=== PATIENT | female | born 1980 | race Two or more races ===

== ENCOUNTER 2022-07-28 22:53 | Inpatient (IN) | payer MEDICAID ==
[~2022-07-28] VITALS: Ht 157.5 cm; Wt 83.4 kg
[2022-07-29 00:39] LABS: Urine Bacteria MANY /hpf (None Seen); Urine Blood 3+ /uL (Negative); Urine Mucus FEW (None Seen); Urine Specific Gravity 1.032 (1.001-1.035); Urine WBC 27 /hpf (0 - 5)
[2022-07-29 00:47] LABS: Basophils # (auto) 0.1 10 ^3/uL (0-0.2); Basophils % (auto) 0.4 % (0.0-2.0); Eosinophils # (auto) 0.3 10 ^3/uL (0-0.8); Eosinophils % (auto) 2.8 % (0.0-7.0); Hematocrit 42.3 % (36.0-46.0); Hemoglobin 14.4 g/dL (12.2-16.2); Lymphocytes # (auto) 2.5 10 ^3/uL (0.4-5.4); Lymphocytes % (auto) 20.6 % (10.0-50.0); Mean Corpuscular Hemoglobin 29.1 pg (28.0-32.0); Mean Corpuscular Volume 85.8 fL (80.0-100.0); Monocytes # (auto) 0.7 10 ^3/uL (0-1.3); Monocytes % (auto) 6.1 % (0.0-12.0); Neutrophils # (auto) 8.5 10 ^3/uL (1.6-8.6); Neutrophils % (auto) 70.1 % (37.0-80.0); Red Blood Cells 4.93 10^6/uL (4.0-5.20); Red Cell Distribution Width 13.2 % (11.8-14.3); White Blood Cell 12.2 10^3/uL (4.4-10.8)
[2022-07-29 01:08] LABS: Albumin 3.6 g/dL (3.4-5.0); BUN/Creatinine Ratio 10.8; Calcium 8.7 mg/dL (8.5-10.1); Potassium 3.5 mmol/L (3.5-5.1)
[2022-07-29 01:10] LABS: Bilirubin, Total 0.5 mg/dL (0.2-1.0); Total Protein 7.4 g/dL (6.4-8.2)
[2022-07-29] MEDS ORDERED: ONDANSETRON HCL 4 MG/2 ML VIAL IV PRN (02:30)
[2022-07-29] MEDS ORDERED: fentaNYL CITRATE 100 MCG/2 ML VL IV ONE (02:30)
[2022-07-29] MEDS ORDERED: NITROGLYCERIN 0.4 MG SL TAB SL PRN (02:30)
[2022-07-29] MEDS ORDERED: ACETAMINOPHEN 325 MG TAB PO PRN (02:30)
[2022-07-29] MEDS ORDERED: MORPHINE SULFATE INJ 2 MG/ml SYRG IV PRN (02:30)
[2022-07-29] MEDS ORDERED: PIPERACILLIN-TAZOB 3.375GM 100 ML IV ONE (02:30)
[2022-07-29] MEDS ORDERED: SODIUM CHLORIDE 0.9% 1,000 ML IV SCH (02:30)
[2022-07-29] MEDS ORDERED: ONDANSETRON HCL 4 MG/2 ML VIAL IV ONE (02:30)
[2022-07-29] MEDS ORDERED: SODIUM CHLORIDE 0.9% 1,000 ML IV ONE (02:30)
[2022-07-29] MEDS: MORPHINE SULFATE INJ 2 MG/ml SYRG IV PRN ×4 (05:40→22:09)
[2022-07-29 06:09] LABS: Basophils # (auto) 0 10 ^3/uL (0-0.2); Basophils % (auto) 0.4 % (0.0-2.0); Eosinophils # (auto) 0.3 10 ^3/uL (0-0.8); Eosinophils % (auto) 2.7 % (0.0-7.0); Hematocrit 39.4 % (36.0-46.0); Hemoglobin 13.5 g/dL (12.2-16.2); Lymphocytes # (auto) 1.8 10 ^3/uL (0.4-5.4); Lymphocytes % (auto) 16.6 % (10.0-50.0); Mean Corpuscular Hemoglobin 29.1 pg (28.0-32.0); Mean Corpuscular Hgb Conc. 34.3 g/dL (32.0-36.0); Mean Corpuscular Volume 84.9 fL (80.0-100.0); Monocytes # (auto) 0.7 10 ^3/uL (0-1.3); Monocytes % (auto) 6.6 % (0.0-12.0); Neutrophils # (auto) 8.1 10 ^3/uL (1.6-8.6); Neutrophils % (auto) 73.7 % (37.0-80.0); Nucleated Red Blood Cells % 0.1 %; Red Blood Cells 4.65 10^6/uL (4.0-5.20); Red Cell Distribution Width 13.1 % (11.8-14.3); White Blood Cell 10.9 10^3/uL (4.4-10.8)
[2022-07-29 06:18] LABS: Potassium 4.1 mmol/L (3.5-5.1)
[2022-07-29 06:25] LABS: BUN/Creatinine Ratio 10.5; Calcium 7.8 mg/dL (8.5-10.1)
[2022-07-29 06:30] LABS: Albumin 3.1 g/dL (3.4-5.0); Bilirubin, Total 0.6 mg/dL (0.2-1.0); Total Protein 6.5 g/dL (6.4-8.2)
[2022-07-29] MEDS: PIPERACILLIN-TAZOB 3.375GM 100 ML IV SCH ×3 (06:30→23:10)
[2022-07-29] MEDS: FAMOTIDINE (10MG/ML) 2ML VL IV SCH (09:42)
[2022-07-29 10:30] LABS: Partial Thromboplastin Time 29.6 sec (24.6-33.4)
[2022-07-29] MEDS: D5W/SOD CHL 0.45% 1,000 ML IV SCH ×2 (11:53→21:10)
[2022-07-29] MEDS: ENOXAPARIN SOD 40 MG/0.4 ML SYRINGE SC SCH (13:18)
[2022-07-29] MEDS: HYDROcodone-ACET 5/325MG TAB PO PRN (13:33)
[2022-07-29] MEDS ORDERED: CETI-175 PO (22:34)
[2022-07-29] MEDS ORDERED: ALBU108A5 INH (22:34)
[2022-07-29 22:55] VITALS: BP 109/46
[2022-07-30] MEDS: D5W/SOD CHL 0.45% 1,000 ML IV SCH ×3 (03:45→21:18)
[2022-07-30] MEDS: MORPHINE SULFATE INJ 2 MG/ml SYRG IV PRN (04:24)
[2022-07-30 05:00] VITALS: BP 100/40
[2022-07-30 05:35] LABS: Basophils # (auto) 0 10 ^3/uL (0-0.2); Basophils % (auto) 0.4 % (0.0-2.0); Eosinophils # (auto) 0.5 10 ^3/uL (0-0.8); Eosinophils % (auto) 5.1 % (0.0-7.0); Hematocrit 37.6 % (36.0-46.0); Hemoglobin 12.7 g/dL (12.2-16.2); Lymphocytes # (auto) 1.6 10 ^3/uL (0.4-5.4); Lymphocytes % (auto) 16.7 % (10.0-50.0); Mean Corpuscular Hemoglobin 29.2 pg (28.0-32.0); Mean Corpuscular Hgb Conc. 33.7 g/dL (32.0-36.0); Mean Corpuscular Volume 86.7 fL (80.0-100.0); Monocytes # (auto) 0.7 10 ^3/uL (0-1.3); Monocytes % (auto) 7.6 % (0.0-12.0); Neutrophils # (auto) 6.7 10 ^3/uL (1.6-8.6); Neutrophils % (auto) 70.2 % (37.0-80.0); Red Blood Cells 4.34 10^6/uL (4.0-5.20); Red Cell Distribution Width 13.3 % (11.8-14.3); White Blood Cell 9.5 10^3/uL (4.4-10.8)
[2022-07-30 05:48] LABS: Potassium 3.4 mmol/L (3.5-5.1)
[2022-07-30 06:01] LABS: Albumin 2.8 g/dL (3.4-5.0); BUN/Creatinine Ratio 5.8; Bilirubin, Total 0.7 mg/dL (0.2-1.0); Calcium 7.9 mg/dL (8.5-10.1); Magnesium 2.7 mg/dL (1.6-2.6); Total Protein 6.6 g/dL (6.4-8.2)
[2022-07-30] MEDS: PIPERACILLIN-TAZOB 3.375GM 100 ML IV SCH ×3 (06:19→21:20)
[2022-07-30 08:27] VITALS: BP 95/44
[2022-07-30] MEDS: ENOXAPARIN SOD 40 MG/0.4 ML SYRINGE SC SCH (08:41)
[2022-07-30] MEDS: FAMOTIDINE (10MG/ML) 2ML VL IV SCH (08:41)
[2022-07-30] MEDS: HYDROcodone-ACET 5/325MG TAB PO PRN ×3 (08:41→21:21)
[2022-07-30] MEDS ORDERED: POTASSIUM EFFERVESENT TAB 25 MEQ PO ONE (10:15)
[2022-07-30 12:00] VITALS: BP 123/52
[2022-07-30 16:23] VITALS: BP 111/48
[2022-07-30 20:10] VITALS: BP 105/62
[2022-07-30 22:00] VITALS: BP 105/62
[2022-07-31] VITALS (26 sets, daily range): BP systolic 93–158; BP diastolic 38–80
[2022-07-31] MEDS: D5W/SOD CHL 0.45% 1,000 ML IV SCH ×3 (03:45→19:45)
[2022-07-31] MEDS: PIPERACILLIN-TAZOB 3.375GM 100 ML IV SCH ×3 (05:24→21:42)
[2022-07-31 07:18] LABS: Basophils # (auto) 0.1 10 ^3/uL (0-0.2); Basophils % (auto) 0.8 % (0.0-2.0); Eosinophils # (auto) 0.7 10 ^3/uL (0-0.8); Eosinophils % (auto) 7.7 % (0.0-7.0); Hematocrit 37.6 % (36.0-46.0); Hemoglobin 12.7 g/dL (12.2-16.2); Lymphocytes # (auto) 2.3 10 ^3/uL (0.4-5.4); Lymphocytes % (auto) 26.5 % (10.0-50.0); Mean Corpuscular Hemoglobin 29.4 pg (28.0-32.0); Mean Corpuscular Hgb Conc. 33.8 g/dL (32.0-36.0); Mean Corpuscular Volume 86.7 fL (80.0-100.0); Monocytes # (auto) 0.7 10 ^3/uL (0-1.3); Monocytes % (auto) 8.5 % (0.0-12.0); Neutrophils # (auto) 4.8 10 ^3/uL (1.6-8.6); Neutrophils % (auto) 56.5 % (37.0-80.0); Red Blood Cells 4.33 10^6/uL (4.0-5.20); Red Cell Distribution Width 13.1 % (11.8-14.3); White Blood Cell 8.5 10^3/uL (4.4-10.8)
[2022-07-31 07:48] LABS: BUN/Creatinine Ratio 5.6; Calcium 8.2 mg/dL (8.5-10.1); Potassium 3.7 mmol/L (3.5-5.1)
[2022-07-31] MEDS: ENOXAPARIN SOD 40 MG/0.4 ML SYRINGE SC SCH (10:00)
[2022-07-31] MEDS: FAMOTIDINE (10MG/ML) 2ML VL IV SCH (10:07)
[2022-07-31] MEDS: MORPHINE SULFATE INJ 2 MG/ml SYRG IV PRN ×2 (11:26→23:55)
[2022-07-31] MEDS ORDERED: ROCURONIUM 10MG/ML 10ML VIAL IV ONE (16:15)
[2022-07-31] MEDS ORDERED: SUCCINYLCHOLINE CHLORIDE 20 MG/ML 10ML VIAL IV ONE (16:15)
[2022-07-31] MEDS ORDERED: fentaNYL CITRATE 100 MCG/2 ML VL ONE (17:10)
[2022-07-31] MEDS ORDERED: MIDAZOLAM HCL 2MG/2ML 2ml VIAL (1mg/ml) ONE ×2 (17:10→18:16)
[2022-07-31] MEDS ORDERED: MEPERIDINE HCL (50 MG/ML) 1 ML VIAL ONE (17:11)
[2022-07-31] MEDS ORDERED: PROPOFOL 10 MG/ML 20 ML IV ONE (17:37)
[2022-07-31] MEDS ORDERED: DexAMETHasone SOD PHOS 10MG/1ML VIAL INJ ONE (17:37)
[2022-07-31] MEDS ORDERED: MIDAZOLAM DRIP 50 mg/50mL 50 ML IV ONE (18:49)
[2022-07-31] MEDS: MIDAZOLAM DRIP 50 mg/50mL 50 ML IV SCH ×2 (18:54→22:35)
[2022-07-31] MEDS: methylPREDNISolone SOD SUCC 40 MG/ML VL IV SCH (21:32)
[2022-08-01] VITALS (103 sets, daily range): BP systolic 84–131; BP diastolic 38–72
[2022-08-01] MEDS: D5W/SOD CHL 0.45%/KCL 20MEQ 1,000 ML IV SCH ×3 (00:04→11:02)
[2022-08-01] MEDS: IPRATROPIUM BROM 0.5 MG/2.5ML INH SOL NEB SCH ×4 (00:05→18:07)
[2022-08-01] MEDS: LEVALBUTEROL HCL 1.25 MG/3 ML NEB NEB SCH ×4 (00:06→18:07)
[2022-08-01] MEDS: MIDAZOLAM DRIP 50 mg/50mL 50 ML IV SCH ×7 (01:56→23:05)
[2022-08-01] MEDS: D5W/SOD CHL 0.45% 1,000 ML IV SCH ×2 (03:45→17:30)
[2022-08-01 05:27] LABS: Basophils # (auto) 0 10 ^3/uL (0-0.2); Basophils % (auto) 0.1 % (0.0-2.0); Eosinophils # (auto) 0 10 ^3/uL (0-0.8); Hematocrit 39.4 % (36.0-46.0); Hemoglobin 13.3 g/dL (12.2-16.2); Lymphocytes # (auto) 0.6 10 ^3/uL (0.4-5.4); Lymphocytes % (auto) 4.3 % (10.0-50.0); Mean Corpuscular Hemoglobin 28.9 pg (28.0-32.0); Mean Corpuscular Hgb Conc. 33.8 g/dL (32.0-36.0); Mean Corpuscular Volume 85.6 fL (80.0-100.0); Monocytes # (auto) 0.3 10 ^3/uL (0-1.3); Neutrophils # (auto) 12.7 10 ^3/uL (1.6-8.6); Neutrophils % (auto) 93.6 % (37.0-80.0); Red Cell Distribution Width 13.1 % (11.8-14.3); White Blood Cell 13.5 10^3/uL (4.4-10.8)
[2022-08-01] MEDS: MORPHINE SULFATE INJ 2 MG/ml SYRG IV PRN (05:34)
[2022-08-01 05:37] LABS: BUN/Creatinine Ratio 6.7; Calcium 8.6 mg/dL (8.5-10.1); Magnesium 2.3 mg/dL (1.6-2.6); Potassium 3.4 mmol/L (3.5-5.1)
[2022-08-01] MEDS: PIPERACILLIN-TAZOB 3.375GM 100 ML IV SCH ×3 (06:03→21:54)
[2022-08-01] MEDS: methylPREDNISolone SOD SUCC 40 MG/ML VL IV SCH ×3 (06:03→21:54)
[2022-08-01] MEDS ORDERED: POTASSIUM CHL 20MEQ/100ML 100 ML IV ONE (06:30)
[2022-08-01] MEDS: PROPOFOL 100 ML IV SCH ×2 (06:45→21:54)
[2022-08-01] MEDS ORDERED: fentaNYL Drip 2500mCg/250mlNS 250 ML IV ONE (06:53)
[2022-08-01] MEDS: fentaNYL Drip 2500mCg/250mlNS 250 ML IV SCH ×2 (07:04→19:22)
[2022-08-01] MEDS: ENOXAPARIN SOD 40 MG/0.4 ML SYRINGE SC SCH (10:00)
[2022-08-01] MEDS ORDERED: EPINEPHrine HCL 1 MG/10 ML SYRG IV ONE (14:53)
[2022-08-01 22:08] LABS: Calcium 8.2 mg/dL (8.5-10.1); Potassium 4.3 mmol/L (3.5-5.1)
[2022-08-02] VITALS (88 sets, daily range): BP systolic 87–127; BP diastolic 35–78
[2022-08-02] MEDS: IPRATROPIUM BROM 0.5 MG/2.5ML INH SOL NEB SCH ×4 (00:22→18:21)
[2022-08-02] MEDS: LEVALBUTEROL HCL 1.25 MG/3 ML NEB NEB SCH ×4 (00:22→18:21)
[2022-08-02] MEDS: D5W/SOD CHL 0.45% 1,000 ML IV SCH ×3 (03:50→23:30)
[2022-08-02] MEDS: MIDAZOLAM DRIP 50 mg/50mL 50 ML IV SCH (03:50)
[2022-08-02 03:57] LABS: Basophils # (auto) 0 10 ^3/uL (0-0.2); Basophils % (auto) 0.2 % (0.0-2.0); Eosinophils # (auto) 0 10 ^3/uL (0-0.8); Hematocrit 36.3 % (36.0-46.0); Hemoglobin 11.9 g/dL (12.2-16.2); Lymphocytes # (auto) 0.8 10 ^3/uL (0.4-5.4); Lymphocytes % (auto) 6.4 % (10.0-50.0); Mean Corpuscular Hemoglobin 28.9 pg (28.0-32.0); Mean Corpuscular Hgb Conc. 32.7 g/dL (32.0-36.0); Mean Corpuscular Volume 88.5 fL (80.0-100.0); Monocytes # (auto) 0.6 10 ^3/uL (0-1.3); Monocytes % (auto) 4.4 % (0.0-12.0); Neutrophils # (auto) 11.9 10 ^3/uL (1.6-8.6); Red Blood Cells 4.11 10^6/uL (4.0-5.20); Red Cell Distribution Width 13.6 % (11.8-14.3); White Blood Cell 13.3 10^3/uL (4.4-10.8)
[2022-08-02 04:10] LABS: INR 0.97 (0.9-1.15); Partial Thromboplastin Time 25.6 sec (24.6-33.4)
[2022-08-02 04:15] LABS: Albumin 2.8 g/dL (3.4-5.0); BUN/Creatinine Ratio 10.7; Potassium 4.1 mmol/L (3.5-5.1)
[2022-08-02 04:18] LABS: Bilirubin, Total 0.2 mg/dL (0.2-1.0); Total Protein 6.6 g/dL (6.4-8.2)
[2022-08-02] MEDS: PROPOFOL 100 ML IV SCH ×2 (05:38→23:18)
[2022-08-02] MEDS: PIPERACILLIN-TAZOB 3.375GM 100 ML IV SCH ×3 (05:38→21:36)
[2022-08-02] MEDS: methylPREDNISolone SOD SUCC 40 MG/ML VL IV SCH ×3 (05:38→21:35)
[2022-08-02] MEDS: fentaNYL Drip 2500mCg/250mlNS 250 ML IV SCH (06:52)
[2022-08-02] MEDS: ENOXAPARIN SOD 40 MG/0.4 ML SYRINGE SC SCH (10:00)
[2022-08-02] MEDS: PANTOPRAZOLE 40 MG/10 ML VIAL INJ IV SCH (11:02)
[2022-08-02] MEDS ORDERED: HYDROmorphone HCL 2 MG/ML VL/or syr ONE ×2 (11:50→12:05)
[2022-08-02] MEDS ORDERED: fentaNYL CITRATE 100 MCG/2 ML VL ONE ×2 (11:50→12:12)
[2022-08-02] MEDS ORDERED: MIDAZOLAM HCL 2MG/2ML 2ml VIAL (1mg/ml) ONE ×2 (11:50→12:11)
[2022-08-02] MEDS ORDERED: BUPIVACAINE 0.25% INJ 50ML VIAL ONE (12:10)
[2022-08-03] VITALS (77 sets, daily range): BP systolic 83–155; BP diastolic 36–97
[2022-08-03] MEDS: IPRATROPIUM BROM 0.5 MG/2.5ML INH SOL NEB SCH ×4 (00:08→18:00)
[2022-08-03] MEDS: LEVALBUTEROL HCL 1.25 MG/3 ML NEB NEB SCH ×4 (00:08→18:00)
[2022-08-03] MEDS: D5W/SOD CHL 0.45% 1,000 ML IV SCH ×3 (01:01→19:30)
[2022-08-03] MEDS: fentaNYL Drip 2500mCg/250mlNS 250 ML IV SCH (01:36)
[2022-08-03 04:18] LABS: Basophils # (auto) 0 10 ^3/uL (0-0.2); Basophils % (auto) 0.1 % (0.0-2.0); Eosinophils # (auto) 0.1 10 ^3/uL (0-0.8); Eosinophils % (auto) 0.5 % (0.0-7.0); Hematocrit 31.3 % (36.0-46.0); Hemoglobin 10.2 g/dL (12.2-16.2); Lymphocytes # (auto) 1.1 10 ^3/uL (0.4-5.4); Lymphocytes % (auto) 9.5 % (10.0-50.0); Mean Corpuscular Hemoglobin 28.9 pg (28.0-32.0); Mean Corpuscular Hgb Conc. 32.7 g/dL (32.0-36.0); Mean Corpuscular Volume 88.4 fL (80.0-100.0); Monocytes # (auto) 0.5 10 ^3/uL (0-1.3); Monocytes % (auto) 4.2 % (0.0-12.0); Neutrophils # (auto) 9.8 10 ^3/uL (1.6-8.6); Neutrophils % (auto) 85.7 % (37.0-80.0); Nucleated Red Blood Cells % 0.1 %; Red Blood Cells 3.54 10^6/uL (4.0-5.20); Red Cell Distribution Width 13.3 % (11.8-14.3); White Blood Cell 11.5 10^3/uL (4.4-10.8)
[2022-08-03] MEDS: PROPOFOL 100 ML IV SCH (05:10)
[2022-08-03] MEDS: PIPERACILLIN-TAZOB 3.375GM 100 ML IV SCH ×3 (06:00→22:08)
[2022-08-03] MEDS: methylPREDNISolone SOD SUCC 40 MG/ML VL IV SCH (06:00)
[2022-08-03] MEDS ORDERED: EPINEPHrine HCL 0.5 ML NEB NEB ONE (09:45)
[2022-08-03] MEDS: PANTOPRAZOLE 40 MG/10 ML VIAL INJ IV SCH (10:30)
[2022-08-03] MEDS: ENOXAPARIN SOD 40 MG/0.4 ML SYRINGE SC SCH (10:32)
[2022-08-04] VITALS (14 sets, daily range): BP systolic 114–143; BP diastolic 58–81
[2022-08-04] MEDS: IPRATROPIUM BROM 0.5 MG/2.5ML INH SOL NEB SCH ×3 (06:08→11:59)
[2022-08-04] MEDS: LEVALBUTEROL HCL 1.25 MG/3 ML NEB NEB SCH ×3 (06:08→11:59)
[2022-08-04] MEDS: D5W/SOD CHL 0.45% 1,000 ML IV SCH (06:11)
[2022-08-04] MEDS: PIPERACILLIN-TAZOB 3.375GM 100 ML IV SCH ×2 (06:12→14:00)
[2022-08-04] MEDS ORDERED: D5W/SOD CHL 0.45% 1,000 ML IV SCH (08:30)
[2022-08-04] MEDS: PANTOPRAZOLE 40 MG/10 ML VIAL INJ IV SCH (10:01)
[2022-08-04] MEDS: ENOXAPARIN SOD 40 MG/0.4 ML SYRINGE SC SCH (10:01)
[2022-08-04] MEDS ORDERED: CEPH-510 PO (13:56)
== END 2022-08-04 17:19 | disposition home or self-care (01) | DRG 263 ==
LOC: ER 22:55 → OVERFLOW 07-29 02:34 → CENTRAL 07-29 22:00 → ICU WEST 07-31 18:43 → CENTRAL 08-04 13:12 → ICU WEST 08-04 13:31
PROVIDERS: ADMIT Nurse Practitioner Family; ATTEND Nurse Practitioner Acute Care
PROC: 0BH17EZ Insertion of Endotracheal Airway into Trachea, Via Natural or Artificial Opening (ICD-10-PCS; 2022-07-31)
PROC: 5A1945Z Respiratory Ventilation, 24-96 Consecutive Hours (ICD-10-PCS; principal; 2022-07-31 17:30)
PROC: 05HD33Z Insertion of Infusion Device into Right Cephalic Vein, Percutaneous Approach (ICD-10-PCS; 2022-08-01)
PROC: B54MZZA Ultrasonography of Right Upper Extremity Veins, Guidance (ICD-10-PCS; 2022-08-01)
PROC: 0FT44ZZ Resection of Gallbladder, Percutaneous Endoscopic Approach (ICD-10-PCS; 2022-08-02)
DX: K80.00 Calculus of gallbladder with acute cholecystitis without obstruction (principal); J96.01 Acute respiratory failure with hypoxia; J45.901 Unspecified asthma with (acute) exacerbation; N39.0 Urinary tract infection, site not specified; E66.01 Morbid (severe) obesity due to excess calories; D72.829 Elevated white blood cell count, unspecified; E88.09 Other disorders of plasma-protein metabolism, not elsewhere classified; E87.6 Hypokalemia; Z20.822 Contact with and (suspected) exposure to COVID-19; Z68.33 Body mass index [BMI] 33.0-33.9, adult; Z98.51 Tubal ligation status
CPT/HCPCS: 36415; 36600; 71045; 74176; 76705; 80048; 80053; 81001; 81025; 82247; 82805; 83036; 83605; 83690; 83735; 84132; 84484; 84702; 85025; 85610; 85730; 86850; 86900; 86901; 87070; 87081; 87205; 87426; 93005; 94002; 94003; 94640; 96361; 96365; 96375; C9113; G0378; J0330; J1100; J2250; J2405; J2543; J2704; J3480; J3490